=== PATIENT | male | born 1960 | race Caucasian/White ===

== ENCOUNTER → 2020-01-20 | Outpatient (CLI) | payer OTHER ==
[~2020-01-20] MED LIST: ALEVE 220MG220 MG PO; CIPRO 500MG TA500 MG PO; FLAGYL500 MG PO; NORCO 325 MG-51 TAB PO; PROVENTIL0.09 MG/A1 IH
== END ==
LOC: COL.RAD 12:15
DX: K57.20 Diverticulitis of large intestine with perforation and abscess without bleeding (principal); K63.89 Other specified diseases of intestine; R68.89 Other general symptoms and signs; N32.89 Other specified disorders of bladder
CPT/HCPCS: Q9967

== ENCOUNTER 2020-01-21 12:42 | Emergency (ER) | payer OTHER ==
[~2020-01-21] VITALS: Ht 175.3 cm; Wt 58.2 kg
[2020-01-21 12:59] VITALS: TEMP 98.3
[2020-01-21] MEDS ORDERED: CIPRO 500MG TA500 MG PO (13:06)
[2020-01-21] MEDS ORDERED: NORCO 325 MG-51 TAB PO (13:07)
[2020-01-21] MEDS ORDERED: FLAGYL500 MG PO (13:07)
[2020-01-21] MEDS ORDERED: PROVENTIL0.09 MG/A1 IH (13:08)
[2020-01-21] MEDS ORDERED: ALEVE 220MG220 MG PO (13:09)
[2020-01-21 13:30] LABS: BASO # 0.1 (0.0-0.2); BASO % 0.6 % (0.0-2.0); EOS # 0.2 (0.0-0.7); EOS % 1.3 % (0-4.0); GRAN # 9.8 (1.4-6.5); GRAN % 76.9 % (42.2-75.2); HEMATOCRIT 42.6 % (42.0-52.0); HEMOGLOBIN 14.4 g/dl (13.5-18.0); LYMPH # 1.8 (1.2-3.4); LYMPH % 14.2 % (20.0-51.0); MEAN CELL VOLUME 101 fl (80.0-100.0); MEAN CORPUSCULAR HEMOGLOBIN 34 pg (27.0-31.0); MEAN CORPUSCULAR HGB CONC 34 g/dl (33.0-37.0); MEAN PLATELET VOLUME 8.1 fl (7.4-10.4); MONO # 0.9 (0.1-0.6); MONO % 6.7 % (1.7-9.3); PLATELET COUNT 349 K/mm3 (130-400); RED BLOOD COUNT 4.23 M/mm3 (4.20-5.60); REDCELL DISTRIBUTION WIDTH-CV 12.7 % (11.5-14.5)
[2020-01-21 13:47] LABS: ALBUMIN 3.7 gm/dL (3.5-5.0); BILIRUBIN,TOTAL 0.3 mg/dL (0.0-1.0); C-REACTIVE PROTEIN 1.4 mg/dL (0.0-0.9); CALCIUM 9.4 mg/dL (8.4-10.2); CREATININE, serum 1.04 (0.66-1.25); POTASSIUM 3.8 mmol/L (3.4-5.0); TOTAL PROTEIN 7.2 gm/dL (6.4-8.2)
[2020-01-21 14:31] LABS: COLLECTION METHOD CLEAN CATCH
[2020-01-21 14:48] LABS: MUCOUS Present /lpf; PH 5 (5-8); SQUAMOUS EPITHELIAL 0-2 /hpf; URINE APPEARANCE Turbid; URINE BACTERIA Rare /hpf; URINE BILIRUBIN Negative (NEGATIVE); URINE BLOOD 2+ (NEGATIVE); URINE COLOR Amber; URINE GLUCOSE Negative (NEGATIVE); URINE KETONE Negative (NEGATIVE); URINE LEUKOCYTE ESTERASE 3+ (NEGATIVE); URINE NITRATE Negative (NEGATIVE); URINE PROTEIN(semi-quant) 1+ (NEGATIVE); URINE RBC >50 /hpf; URINE UROBILINOGEN Negative (NEGATIVE)
[2020-01-21 16:51] VITALS: BP 133/81; PULSE 91
== END 2020-01-21 16:51 | disposition left against medical advice (07) ==
LOC: COL.ER 12:42
PROVIDERS: Emergency Medicine
DX: K57.32 Diverticulitis of large intestine without perforation or abscess without bleeding (principal); F17.210 Nicotine dependence, cigarettes, uncomplicated
CPT/HCPCS: J2543; J7030

== ENCOUNTER → 2023-07-21 | Outpatient (CLI) | payer OTHER ==
[~2023-07-21] MED LIST changes: +AMOXICILLIN 8751 TAB PO; +TRELEGY ELLIPT1 EACH IH
== END ==
LOC: COL.RAD 08:15
DX: Z12.2 Encounter for screening for malignant neoplasm of respiratory organs (principal); F17.200 Nicotine dependence, unspecified, uncomplicated